=== PATIENT | female | born 1950 | race Caucasian/White ===

== ENCOUNTER 2017-03-25 17:41 | Emergency (ER) | payer MEDICARE, BC ==
[~2017-03-25] VITALS: Ht 182.9 cm; Wt 90.9 kg
[2017-03-25 17:50] VITALS: Ht 182.9 cm; Wt 90.9 kg
[2017-03-25] MEDS ORDERED: SOD CHLORIDE 0.9% 1,000 ML IV STA (18:21)
[2017-03-25] MEDS ORDERED: ONDANSETRON 4 MG INJ IV STA (18:21)
[2017-03-25] MEDS ORDERED: KETOROLAC 15 MG INJ IV STA (18:21)
[2017-03-25] MEDS ORDERED: morphine 4 MG/ML VIAL IV STA ×2 (18:21→21:54)
--- NOTE | 2017-03-25 18:50 | ERD ---
ER Documentation Chief Complaint Date/Time DATE: 03/25/17 TIME: 18:47 Chief Complaint LEFT SIDED FLANK PAIN, DENIES FEVER OR DYSURIA OR HEMTURIA, HX STONES HPI 67-year-old female history of ureterolithiasis ambulatory to the ED complaining of acute onset of severe, sharp and achy left flank pain radiating down to the buttock, 1 hour ago. Denies dysuria, polyuria hematuria. No relieving or exacerbating factors. No abdominal pain, nausea, vomiting, diarrhea or constipation. Denies chest pain, palpitations or shortness of breath. No fevers or chills. ROS All systems reviewed and are negative except as per history of present illness. Medications Home Meds No Active Prescriptions or Reported Meds Allergies Allergies: Coded Allergies: acetaminophen (Unverified Allergy, Intermediate, hives, 03/25/17) hydrocodone (Unverified Allergy, Intermediate, hives, 03/25/17) PMhx/Soc Reviewed in chart. As per HPI History of Surgery: Yes (Nerve stimulator) Anesthesia Reaction: No Hx Neurological Disorder: No Hx Respiratory Disorders: No Hx Cardiac Disorders: No Hx Psychiatric Problems: No Hx Miscellaneous Medical Probl: Yes (Ureterolithiasis) Hx Alcohol Use: No Hx Substance Use: No Hx Tobacco Use: No FmHx No stroke or cancer Physical Exam Vitals Vital Signs Date Time Temp Pulse Resp B/P Pulse Ox O2 Delivery O2 Flow Rate FiO2 03/25/17 17:50 98.7 59 20 197/92 98 Physical Exam Const: Alert, Moderate distress. Head: Atraumatic Eyes: Normal Conjunctiva ENT: Normal External Ears, Nose and Mouth. Neck: Full range of motion. Tender. No JVD. Resp: Sounds are equal and clear to auscultation bilaterally Cardio: Regular rate and rhythm, no murmurs Abd: Soft, non tender, non distended. Normal bowel sounds Skin: No petechiae or rashes Back: Mild left flank tenderness. No midline bony tenderness or step-off. No paraspinal muscle spasm. Ext: No cyanosis, or edema Neur: Awake and alert no focal deficit observed. Psych: Normal Mood and Affect Result Diagram: 03/25/17 1850 03/25/17 1850 Results 24 hrs Laboratory Tests Test 03/25/17 18:50 White Blood Count 7.410^3/ul Red Blood Count 4.3510^6/ul Hemoglobin 13.3g/dl Hematocrit 39.8% Mean Corpuscular Volume 91.5fl Mean Corpuscular Hemoglobin 30.6pg Mean Corpuscular Hemoglobin Concent 33.4g/dl Red Cell Distribution Width 12.3% Platelet Count 95222^3/UL Mean Platelet Volume 10.1fl Neutrophils % 61.9% Lymphocytes % 26.0% Monocytes % 7.6% Eosinophils % 3.4% Basophils % 0.7% Nucleated Red Blood Cells % 0.0/100WBC Neutrophils # 4.610^3/ul Lymphocytes # 1.910^3/ul Monocytes # 0.610^3/ul Eosinophils # 0.310^3/ul Basophils # 0.110^3/ul Nucleated Red Blood Cells # 0.010^3/ul Urine Color ANDRES Urine Clarity CLOUDY Urine pH 5.0 Urine Specific [place] 1.020 Urine Ketones NEGATIVEmg/dL Urine Nitrite POSITIVEmg/dL Urine Bilirubin NEGATIVEmg/dL Urine Urobilinogen NEGATIVEmg/dL Urine Leukocyte Esterase TRACELeu/ul Urine Microscopic RBC 1/HPF Urine Microscopic WBC 23/HPF Urine Bacteria MANY/HPF Urine Mucus FEW/HPF Urine Hemoglobin NEGATIVEmg/dL Urine Glucose NEGATIVEmg/dL Urine Total Protein NEGATIVEmg/dl Sodium Level 139mmol/L Potassium Level 4.2mmol/L Chloride Level 105mmol/L Carbon Dioxide Level 26mmol/L Anion Gap 12 Blood Urea Nitrogen 17mg/dl Creatinine 0.67mg/dl Glucose Level 103mg/dl Calcium Level 9.9mg/dl Current Medications Medications (Trade) Dose Ordered Sig/Lokesh Route PRN Reason Start Time Stop Time Status Last Admin Dose Admin Sodium Chloride (NS) 1,000 ml @ 1,000 mls/hr Q1H STAT IV 03/25/17 18:21 03/25/17 19:20 DC 03/25/17 19:13 Morphine Sulfate (morphine) 4 mg ONCE STAT IV 03/25/17 18:21 03/25/17 18:25 DC 03/25/17 19:12 Ondansetron HCl (Zofran Inj) 4 mg ONCE STAT IV 03/25/17 18:21 03/25/17 18:25 DC 03/25/17 19:11 Ketorolac Tromethamine (Toradol) 15 mg ONCE STAT IV 03/25/17 18:21 03/25/17 18:25 DC 03/25/17 19:11 Morphine Sulfate 4 mg 4 mg ONCE STAT IV 03/25/17 21:54 03/25/17 21:55 DC 03/25/17 22:04 Ceftriaxone Sodium (Rocephin) 50 ml @ 100 mls/hr ONCE ONCE IVPB 03/25/17 22:00 03/25/17 22:29 03/25/17 22:04 Procedures/MDM DOCUMENTS REVIEWED: ED nurse, no prior records available MEDICAL DECISION MAKIN-year-old female history of ureterolithiasis ambulatory to the ED complaining of acute onset of severe, sharp and achy left flank pain radiating down to the buttock. No ultrasound evidence of hydronephrosis or ureterolithiasis. No obvious radio opaque bodies on the KUB. Pyuria and possible pyelonephritis. Symptoms may be secondary to dissipation of chronic back pain. Abdominal exam is completely benign without tenderness, rebound, guarding or signs of peritonitis. Symptoms improved with intravenous hydration and analgesics. IV Rocephin given pending cultures. No criteria for systemic inflammatory response and symptoms of sepsis. Tolerating PO's and appropriate for discharge with appropriate analgesics, oral antibiotics and urgent outpatient follow-up tomorrow with her primary care physician. Counseled patient and family regarding diagnostic workup, diagnosis and need for followup. Understands to return to ED if symptoms recur, worsen or any other concerns. Departure Diagnosis: Primary Impression: Flank pain Additional Impression: Pyelonephritis Condition: Stable CAROLE SMITH MD Mar 25, 2017 18:50
[2017-03-25 19:18] LABS: BASOPHIL # 0.1 10^3/ul (0.0-0.1); BASOPHILS % 0.7 % (0.0-2.0); EOSINOPHILS # 0.3 10^3/ul (0.0-0.5); EOSINOPHILS % 3.4 % (0.0-7.0); HEMATOCRIT 39.8 % (37.0-47.0); HEMOGLOBIN 13.3 g/dl (12.0-16.0); LYMPHOCYTES # 1.9 10^3/ul (0.8-2.9); MEAN CORPUSCULAR HEMOGLOBIN 30.6 pg (29.0-33.0); MEAN CORPUSCULAR HGB CONC 33.4 g/dl (32.0-37.0); MEAN CORPUSCULAR VOLUME 91.5 fl (82.0-101.0); MEAN PLATELET VOLUME 10.1 fl (7.4-10.4); MONOCYTE # 0.6 10^3/ul (0.3-0.9); MONOCYTES % 7.6 % (0.0-11.0); NEUTROPHIL # 4.6 10^3/ul (1.6-7.5); NEUTROPHILS % 61.9 % (39.0-77.0); PLATELET COUNT 174 10^3/UL (140-415); RED BLOOD COUNT 4.35 10^6/ul (4.20-5.40); RED CELL DISTRIBUTION WIDTH 12.3 % (11.5-14.5); WHITE BLOOD COUNT 7.4 10^3/ul (4.8-10.8)
--- NOTE | 2017-03-25 19:20 | RADRPT ---
PROCEDURE: RENAL ULTRASOUND: CLINICAL INDICATION: 67 years of age, female . Left flank pain . COMPARISON: None available. TECHNIQUE: Multiple transverse and longitudinal sonographic palacios scale images of the kidneys and karl dder were obtained, supplemented with color, power, and spectral Doppler imaging. FINDINGS: Right kidney: Length: 10.2 cm. Appearance: Normal parenchymal appearance. Negative for hydronephrosis. Left kidney: Length: 11.7 cm. Appearance: Normal parenchymal appearance. Negative for hydronephrosis. Bladder: Not visualized. Additional comment: Echogenic liver parenchyma in keeping with steatosis. IMPRESSION: Normal renal size. Negative for hydronephrosis. Bladder is not visualized and is likely contracted. Echogenic liver parenchyma likely due to hepatic steatosis. RPTAT: HCTS Physician Chad Date Time Electronically viewed and signed by Physician Chad on 03/25/2017 19:20 /
[2017-03-25 19:23] LABS: ADD UMIC YES; UR ASCORBIC ACID 40 mg/dL (NEGATIVE); UR BACTERIA MANY /HPF (NONE SEEN); UR BILIRUBIN (Dip) NEGATIVE (NEGATIVE); UR BLOOD (Dip) NEGATIVE (NEGATIVE); UR CLARITY CLOUDY (CLEAR); UR COLOR AMBER (YELLOW); UR GLUCOSE (Dip) NEGATIVE (NEGATIVE); UR KETONES (Dip) NEGATIVE (NEGATIVE); UR LEUKOCYTE ESTERASE (Dip) TRACE Leu/ul (NEGATIVE); UR MUCUS FEW /HPF (NONE SEEN); UR NITRITE (Dip) POSITIVE (NEGATIVE); UR RBC 1 /HPF (0-5); UR TOTAL PROTEIN (Dip) NEGATIVE (NEGATIVE); UR UROBILINOGEN (Dip) NEGATIVE (NEGATIVE)
--- NOTE | 2017-03-25 19:23 | RADRPT ---
PROCEDURE: XR Abdomen. CLINICAL INDICATION: 67 years of age, female. Left flank pain. TECHNIQUE: Supine AP views of the abdomen. COMPARISON: None available. FINDINGS: There is moderate colonic stool overlying the kidneys somewhat limiting evaluation for calculi. No a bnormal calculi are identified over either kidney or ureter. Round calcifications in the pelvis rese mble phleboliths. Bowel gas pattern is nonobstructive. There is moderate colonic stool suggesting constipation. Multilevel degenerative changes in spine and left hip. There is a neurostimulator projected over the thoracolumbar spine that likely enters the spinal canal at the L3-4 level. Distal electrodes projec t over T10-11. Pulse generator projects over right hip. IMPRESSION: No abnormal calculi are identified over either kidney or ureter. Calcifications in the pelvis likely represent phleboliths although a bladder calculus is difficult to exclude. Moderate colonic stool. RPTAT: HCTS Physician Chad Date Time Electronically viewed and signed by Joselo Ospina Physician on 03/25/2017 19:23 /
[2017-03-25 19:37] LABS: CALCIUM 9.9 mg/dl (8.4-10.2); CREATININE 0.67 mg/dl (0.44-1.00); POTASSIUM 4.2 mmol/L (3.5-5.1)
[2017-03-25] MEDS ORDERED: CEFTRIAXONE 1 GM/50 ML (PMX) 50 ML IVPB ONE (22:00)
[2017-03-25] MEDS ORDERED: TRAM50TA2 PO (22:27)
[2017-03-25] MEDS ORDERED: CIPR500T4 PO (22:28)
[2017-03-25 22:45] VITALS: BP 135/88; PULSE 69; RESP 18
== END 2017-03-25 22:50 | disposition home or self-care (01) ==
LOC: E/R 17:41
DX: N12 Tubulo-interstitial nephritis, not specified as acute or chronic (principal); R40.2252 Coma scale, best verbal response, oriented, at arrival to emergency department; R40.2142 Coma scale, eyes open, spontaneous, at arrival to emergency department; R40.2362 Coma scale, best motor response, obeys commands, at arrival to emergency department
CPT/HCPCS: 36415; 74000; 76775; 80048; 81001; 85025; 96374; 96375; 96376; 99285; J0696; J1885; J2270; J2405; J7030